=== PATIENT | female | born 1965 | race Caucasian/White ===

== ENCOUNTER 2021-10-07 16:13 | Inpatient (IN) | payer OTHER ==
[~2021-10-07] VITALS: Ht 167.6 cm; Wt 54.6 kg
--- NOTE | 2021-10-07 16:30 | NUR ---
ASSUMED CARE: PT ARRIVED VIA AMBULANCE FROM [facility]. REPORT RECEIVED FROM RN THERE. PT'S CBG WAS 310, INSULIN PUT AT 3UNITS/HR AND FLUIDS WERE NS WITH KCL AT 125/HR. CALL TO DR GARCIA FOR FURTHER ORDERS. PT SINUS TACH IN 1TEENS, NO FURTHER COMPLAINTS AT THIS TIME.
[2021-10-07] MEDS ORDERED: MERIBIN5 MG PO (16:40)
[2021-10-07] MEDS ORDERED: METF500 PO (16:40)
[2021-10-07] MEDS ORDERED: ZOCOR20 MG PO (16:40)
[2021-10-07] MEDS ORDERED: GLIP5 PO (16:40)
[2021-10-07] MEDS ORDERED: INSULANI SC ×2 (17:01→17:02)
[2021-10-07] MEDS ORDERED: VALS80 PO (17:02)
[2021-10-07] MEDS ORDERED: LOSA25 PO (17:02)
[2021-10-07 17:18] LABS: Anion Gap 19 mmol/L (6-16); Blood Urea Nitrogen 29 mg/dL (8-24); Bun/Creatinine Ratio 30.9 (12.0-20.0); CO2, Blood 14 mmol/L (21-32); Calcium, Blood 9.3 mg/dL (8.5-10.1); Chloride, Blood 109 mmol/L (98-108); Creatinine, Blood 0.94 mg/dL (0.40-1.00); Glomerular Filtration Rate >60 (60-); Glucose, Blood 381 mg/dL (70-99); Potassium, Blood 3.8 mmol/L (3.5-5.5); Sodium, Blood 142 mmol/L (136-145)
--- NOTE | 2021-10-07 18:49 | NUR ---
SHIFT SUMMARY: PT CURRENTLY ON 4UNITS/HR OF INSULIN AT THIS TIME. SEE CBG TRENDS. DR GARCIA CAME TO SEE PT WITH NEW ORDERS RECIEVED. EKG DONE PER ORDERS. PT'S FAMILY WAS GIVEN UPDATE REGARDING HISTORY. PLAN IS FOR CONTINUED INSULIN AND FLUIDS OVERNIGHT AND LAB MONITORING. DR AWARE OF LIVER ABCESS WITH NO NEW ORDERS AT THIS TIME. REVIEWED CHART FROM [facility].
--- NOTE | 2021-10-07 19:45 | NUR ---
ASSUMPTION OF CARE: AOX3, SPEAKS ENOUGH [place] TO GET HER NEEDS ACROSS AND COMMUNICATE WITH STAFF. DENIES ANY N/V, CP, DIZZINESS, SEVERE THIRST, PAIN, OR DISCOMFORT. LS CLEAR T/O. RESP EVEN AND UNLABORED. BLOOD SUGAR CURRENTLY AT 222. D51/4 NS STARTED. STOPPED CURRENT FLUIDS. INSULIN DRIP STILL INFUSING AT 4. VS WNL. AFEBRILE. WILL CONTINUE TO MONITOR AND TREAT. CALL LIGHT IN REACH.
[2021-10-07 20:58] LABS: Anion Gap 13 mmol/L (6-16); Blood Urea Nitrogen 23 mg/dL (8-24); Bun/Creatinine Ratio 28.3 (12.0-20.0); CO2, Blood 19 mmol/L (21-32); Calcium, Blood 9.1 mg/dL (8.5-10.1); Chloride, Blood 114 mmol/L (98-108); Creatinine, Blood 0.81 mg/dL (0.40-1.00); Glomerular Filtration Rate >60 (60-); Glucose, Blood 262 mg/dL (70-99); Potassium, Blood 3.8 mmol/L (3.5-5.5); Sodium, Blood 146 mmol/L (136-145)
[2021-10-08 00:54] LABS: Anion Gap 9 mmol/L (6-16); Blood Urea Nitrogen 18 mg/dL (8-24); Bun/Creatinine Ratio 30.1 (12.0-20.0); CO2, Blood 21 mmol/L (21-32); Calcium, Blood 8.6 mg/dL (8.5-10.1); Chloride, Blood 117 mmol/L (98-108); Glomerular Filtration Rate >60 (60-); Glucose, Blood 213 mg/dL (70-99); Potassium, Blood 3.4 mmol/L (3.5-5.5); Sodium, Blood 147 mmol/L (136-145)
--- NOTE | 2021-10-08 05:33 | NUR ---
SHIFT SUMMARY: AOX4, ABLE TO COMMUNICATE EFFICIENTLY DISPITE MONGOLIAN BEING HER SECOND LANGUAGE. SHE HAS BEEN SLEEPY MOST OF SHIFT, ONLY COMPLAINT WAS A HEADACHE. NO N/V, ABDOMINAL PAIN. BLOOD SUGARS HAVE DECREASED APPROPRIATLY. D51/2 NS WAS STARTED EARLY IN SHIFT. iNSULIN DRIP CONTINUES AT 2.5UNITS/HR. LAST BLOOD SUGAR 167. ANION GAP CLOSED AROUND MIDNIGHT AND CO2 RETURNED TO NORMAL. DR. HERNANDES WAS NOTIFED, HE WANTED TO KEEP DRIP GOING TILL MORNING. NPO EXCEPT FOR FLUIDS, ONLY 400CC URINE OUTPUT. WILL CONTINUE TO MONITOR. CALL LIGHT IN REACH.
[2021-10-08 05:46] LABS: BASOPHILS ABSOLUTE AUTO 0.02 K/mm3 (0.00-0.23); BASOPHILS PERCENT AUTO 0 % (0-2); EOSINOPHILS PERCENT AUTO 0 % (0-6); Hematocrit 32.8 % (33.0-51.0); Hemoglobin 11.2 g/dL (11.5-16.0); IMMATURE GRAN ABSOLUTE AUTO 0.05 K/mm3 (0.00-0.10); IMMATURE GRAN PERCENT AUTO 0 % (0-1); LYMPHOCYTES ABSOLUTE AUTO 1.06 K/mm3 (0.84-5.20); LYMPHOCYTES PERCENT AUTO 8 % (21-46); MONOCYTES PERCENT AUTO 5 % (4-13); Mean Corpuscular HGB 28.1 pg (26.0-34.0); Mean Corpuscular HGB Conc 34.1 g/dL (31.5-36.5); Mean Corpuscular Volume 82 fL (80-100); Mean Platelet Volume 10.4 fL (9.1-12.4); NEUTROPHILS ABSOLUTE AUTO 11.07 K/mm3 (1.96-9.15); NEUTROPHILS PERCENT AUTO 86 % (41-73); Platelet Count 180 K/mm3 (150-400); RDW Coefficient Variation 13.7 % (11.7-14.2); RDW Standard Deviation 41.2 fL (35.1-46.3); Red Blood Cell Count 3.99 M/mm3 (3.80-5.20)
[2021-10-08 06:13] LABS: Anion Gap 8 mmol/L (6-16); Blood Urea Nitrogen 15 mg/dL (8-24); Bun/Creatinine Ratio 27.6 (12.0-20.0); CO2, Blood 21 mmol/L (21-32); Calcium, Blood 8.2 mg/dL (8.5-10.1); Chloride, Blood 117 mmol/L (98-108); Creatinine, Blood 0.54 mg/dL (0.40-1.00); Glomerular Filtration Rate >60 (60-); Glucose, Blood 187 mg/dL (70-99); Potassium, Blood 3.1 mmol/L (3.5-5.5); Sodium, Blood 146 mmol/L (136-145)
--- NOTE | 2021-10-08 07:23 | NUR ---
ASSUMED CARE: PT RESTING AT THIS TIME. D5 1/2 NS AND INSULIN RUNNING. INSULIN GTT AT 2 UNITS/HR. GAP CLOSED AND CO2 WNL. WILL DISCUSS WITH MD POTASSIUM LEVEL. PT ASKING FOR FOOD. EXPLAINED THAT WE WILL WORK ON THAT WHEN WE TRANSITION TO SC INSULIN. NO ACUTE NEEDS AT THIS TIME.
[2021-10-08 08:57] LABS: Anion Gap 5 mmol/L (6-16); Blood Urea Nitrogen 16 mg/dL (8-24); Bun/Creatinine Ratio 29.6 (12.0-20.0); CO2, Blood 25 mmol/L (21-32); Calcium, Blood 8.6 mg/dL (8.5-10.1); Chloride, Blood 114 mmol/L (98-108); Creatinine, Blood 0.54 mg/dL (0.40-1.00); Glomerular Filtration Rate >60 (60-); Glucose, Blood 200 mg/dL (70-99); Potassium, Blood 3.3 mmol/L (3.5-5.5); Sodium, Blood 144 mmol/L (136-145)
[2021-10-08 10:25] LABS: CHOL/HDL RATIO 2.7; Cholesterol 170 mg/dL (50-200); Ferritin, Serum 111 ng/mL (8-252); HDL Cholesterol 63 mg/dL (>39); Iron Serum 156 ug/dL (50-170); LDL/HDL RATIO 1.4; Low Density Lipoprotein Chol 87 mg/dL (0-110); Total Iron Binding Capacity 226 ug/dL (250-450); Triglycerides 99 mg/dL (30-160); Very Low Density Lipoprot Chol 19 mg/dL (6-32)
--- NOTE | 2021-10-08 18:00 | NUR ---
SHIFT SUMMARY: PT HAS TRANSITIONED TO [facility] INSULIN. SHE HAS REQUIRED COVERAGE ALL SHIFT FOR CBGS 2-300S. DENIES NAUSEA OR OTHER CONCERNS AT THIS TIME. DIETARY CAME TO EDUCATE HER TODAY. AWAITING BED ON MEDICAL FLOOR. NO ACUTE NEEDS OR CONCERNS AT THIS TIME.
--- NOTE | 2021-10-09 01:48 | NUR ---
FABIOLA HAS BEEN INDEPENDENT IN HER ROOM, TOOK HER HS MEDS AND COVERED HER CBG WITH INSULIN, SHE HAS BEEN QUIETLY RESTING WITH THE LIGHT OFF. NO COMPLAINTS.
[2021-10-09 03:19] LABS: Hematocrit 32.8 % (33.0-51.0); Hemoglobin 11.3 g/dL (11.5-16.0); Mean Corpuscular HGB 28.1 pg (26.0-34.0); Mean Corpuscular HGB Conc 34.5 g/dL (31.5-36.5); Mean Corpuscular Volume 82 fL (80-100); Mean Platelet Volume 10.5 fL (9.1-12.4); Platelet Count 151 K/mm3 (150-400); RDW Coefficient Variation 13.5 % (11.7-14.2); RDW Standard Deviation 40.4 fL (35.1-46.3); Red Blood Cell Count 4.02 M/mm3 (3.80-5.20); White Blood Cell Count 6.93 K/mm3 (4.00-11.30)
[2021-10-09 03:49] LABS: Alanine Aminotransfer (ALT/SGP 23 U/L (12-78); Albumin, Blood 2.7 g/dL (3.4-5.0); Albumin/Globulin Ratio 0.9 (0.8-1.8); Alk Phos 76 U/L (50-136); Anion Gap 6 mmol/L (6-16); Aspartate Aminotrans (AST/SGOT 13 U/L (12-37); Bilirubin, Total 0.9 mg/dL (0.1-1.0); Blood Urea Nitrogen 12 mg/dL (8-24); Bun/Creatinine Ratio 24.9 (12.0-20.0); CO2, Blood 30 mmol/L (21-32); Calcium, Blood 8.6 mg/dL (8.5-10.1); Chloride, Blood 107 mmol/L (98-108); Creatinine, Blood 0.48 mg/dL (0.40-1.00); Glomerular Filtration Rate >60 (60-); Glucose, Blood 277 mg/dL (70-99); Potassium, Blood 3.3 mmol/L (3.5-5.5); Sodium, Blood 143 mmol/L (136-145); Total Protein, Blood 5.7 g/dL (6.4-8.2)
--- NOTE | 2021-10-09 06:25 | NUR ---
FABIOLA HAS BEEN INDEPENDENT THIS SHIFT, DOING HER OWN THING IN THE ROOM. SHE HASN'T NEEDED ANY ASSISTANCE. SHE HAS SLEPT ON AND OFF, TALKING ON THE PHONE WITH HER FAMILY. WILL REPORT TO DAY SHIFT.
--- NOTE | 2021-10-09 07:30 | NUR ---
ASSUMED CARE: PT RESTING QUIETLY IN BED AT THIS TIME. SL, DENIES NEEDS OR CONCERNS AT THIS TIME.
[2021-10-09] MEDS ORDERED: HUMULIN R100 UNIT/2 (08:59)
--- NOTE | 2021-10-09 09:24 | NUR ---
DISCHARGE ORDERS DISCUSSED WITH PT. IV'S DC'D WNL. PT AWARE OF NEW MEDICATIONS AND TO CONTACT PCP FOR FOLLOW UP APPOINTMENT. MEDS CALLED INTO [facility] IN [place]. ESCORTED OUT VIA WHEEL CHAIR BY HOSPITAL STAFF. DENIES FURTHER QUESTIONS OR CONCERNS.
== END 2021-10-09 09:25 | disposition home or self-care (01) | DRG 638 ==
LOC: ICUE 16:13
PROVIDERS: Internal Medicine; ADMIT Family Medicine
DX: E10.10 Type 1 diabetes mellitus with ketoacidosis without coma (principal); N17.9 Acute kidney failure, unspecified; D72.829 Elevated white blood cell count, unspecified; D64.9 Anemia, unspecified; K76.89 Other specified diseases of liver; I10 Essential (primary) hypertension; E78.5 Hyperlipidemia, unspecified; K21.9 Gastro-esophageal reflux disease without esophagitis; Z23 Encounter for immunization; Z79.4 Long term (current) use of insulin; Z98.51 Tubal ligation status; Z88.8 Allergy status to other drugs, medicaments and biological substances; Z79.899 Other long term (current) drug therapy
CPT/HCPCS: 36415; 80048; 80053; 80061; 82607; 82728; 82746; 82947; 83036; 83540; 83550; 83735; 84443; 84484; 84681; 85025; 85027; 90686; 93005; 93010; A9270; C9113; G0008; J1650; J1815; J7042